=== PATIENT | female | born 1965 | race Caucasian/White ===

== ENCOUNTER → 2017-01-13 | Outpatient (CLI) | payer OTHER ==
--- NOTE | 2017-01-13 14:33 | CARDIOVASCULAR REPORT ---
"Venous Exam Indications: 729.5 Pain in limb. IMPRESSIONS 1. There is no evidence of significant Reflux. 2. No evidence of deep or superficial vein thrombosis involving the right lower extremity Right lower extremity venous duplex evaluation. Doppler flow study including spectral analysis, color and ivey scale imaging. Location: Vascular laboratory. Patient status: Outpatient. Tables: Venous flow and imaging: + +-------+ + |Location |Overall|Flow properties | + +-------+ + |Right common femoral |Patent |Normal phasicity; spontaneous; | | | |normal augmentation; compressible| + +-------+ + |Right saphenofemoral junction|Patent |Compressible | + +-------+ + |Right profunda femoral |Patent |Compressible | + +-------+ + |Right femoral |Patent |Normal phasicity; spontaneous; | | | |normal augmentation; compressible| + +-------+ + |Right greater saphenous |Patent |Normal phasicity; spontaneous; | | | |normal augmentation; compressible| + +-------+ + |Right popliteal |Patent |Normal phasicity; spontaneous; | | | |normal augmentation; compressible| + +-------+ + |Right posterior tibial |Patent |Compressible | + +-------+ + |Right peroneal |Patent |Compressible | + +-------+ + |Right gastrocnemius |Patent |Compressible | + +-------+ + |Right soleal |Patent |Compressible | + +-------+ + (Report amended ) Electronically signed by: Isacc Leary [id number]"
== END ==
LOC: RT 13:56
DX: M79.89 Other specified soft tissue disorders (principal); R22.9 Localized swelling, mass and lump, unspecified

== ENCOUNTER 2017-06-13 07:35 | Day surgery (SDC) | payer OTHER ==
[~2017-06-13] VITALS: Ht 167.6 cm; Wt 77.1 kg
--- NOTE | 2017-06-13 10:09 | Operative Note ---
Surgeon/Diagnoses Surgeon/Hazardous Material Technician(s) Date of procedure: 06/13/17 Surgeon: MD Maria Victoria Garcia Hazardous Material Technician(s): Tato Srivastava Diagnoses Pre-op diagnosis: Umbilical hernia Post-op diagnosis Incarcerated umbilical hernia Procedure Procedure Procedure: Laparoscopic-assisted open repair of incarcerated umbilical hernia Indications: DEBBIE ALVAREZ is a 51 year-old Female with a history enlarging and somewhat symptomatic umbilical hernia. Findings: Incarcerated omentum and preperitoneal fat (no sign of incarceration during prior evaluation) Procedure Description: After informed consent was obtained, the patient was taken to the operating room and placed in the supine position. General anesthesia was induced and her abdomen was prepped and draped in a sterile fashion. After infiltration with local anesthetic a small stab incision was made in the LEFT upper quadrant. A Veress needle was placed in position. The abdomen was insufflated. A 5 mm optical trochars placed in the LEFT mid flank. An additional 5 mm trocar was placed under direct visualization at the site of the Veress entry. Evaluation revealed incarcerated omentum that was carefully taken down utilizing blunt dissection. Once this omentum was removed, careful inspection and palpation revealed an area of incarcerated preperitoneal fat. This tissue was also carefully removed. Decision was made to proceed with laparoscopic-assisted open repair secondary to the remaining 2 cm defect. An incision was made overlying the defect and a 8 cm Ventralex mesh was placed in position and secured circumferentially with 0 Ethibond. The fascia was then primarily reapproximated with 0 Ethibond. Pneumoperitoneum was once again achieved and inspection revealed the mesh to be in good position with no sign of injury or bleeding. The air was evacuated as the trocars were removed. All wounds were irrigated and skin was closed with 4-0 Monocryl in a subcuticular fashion. Steri-Strips were applied. The patient's anesthetic agents were reversed and she was extubated prior to transfer to recovery. EBL (ml): 15 Anesthesia: GETA Complications: No immediate Specimens: None Disposition Disposition: Stable to recovery from where she will be discharged home. She will follow-up in 1-2 weeks. at 1008
--- NOTE | 2017-06-13 10:23 | Anesthesia Record ---
Anesthesia Record Part I Total IV fluids: 1800 EBL (ml): 20 Urine Output: 200 B/P: 138/76 % SaO2: 97 Pulse: 82 Resps: 12 Temp: 97.4 Patient is: Awake, Stable Stable to PACU at: 1020 at 1022
--- NOTE | 2017-06-13 10:23 | Anesthesia Record ---
Anesthesia Record Part II Discharge time: 1050 Destination: Same day surgery PACU nurse assessment review? Yes Patient is: Awake, Stable Anesthesia complications? No at 1021
[2017-06-13 12:38] VITALS: BP 133/85
[2017-06-13 14:21] LABS: URINE BILIRUBIN - DIPSTICK NEGATIVE (NEG); URINE BLOOD NEGATIVE (NEG)
== END 2017-06-13 11:40 | disposition home or self-care (01) ==
LOC: SDC 07:35
PROVIDERS: Surgery
PROC: 0WUF0JZ Supplement Abdominal Wall with Synthetic Substitute, Open Approach (ICD-10-PCS; principal; 2017-06-13 09:15)
DX: K42.0 Umbilical hernia with obstruction, without gangrene (principal)
CPT/HCPCS: C1781; J2405; J2710